=== PATIENT | female | born 1950 | race Caucasian/White ===

== ENCOUNTER 2018-10-02 10:31 | Emergency (ER) | payer MEDICARE ==
[~2018-10-02] VITALS: Ht 154.9 cm; Wt 85.8 kg
[2018-10-02 11:04] VITALS: Ht 154.9 cm; Wt 85.8 kg
[2018-10-02 11:48] LABS: microscopic required? NO
[2018-10-02 11:56] LABS: CARBON DIOXIDE 27.1 mmol/L (21-32); CHLORIDE SERUM 103 mmol/L (98-107); CREATININE SERUM 0.7 mg/dL (0.6-1.0); GFR1 > 60 mL/min; GLUCOSE SERUM 282 mg/dL (74-106); POTASSIUM SERUM 3.3 mmol/L (3.5-5.1); SODIUM SERUM 142 mmol/L (136-145)
[2018-10-02 11:59] LABS: BASOPHIL % 0.5 % (0-2); PLATELET COUNT 275 x10^3mcL (130-400); RED CELL DISTRIBUTION WIDTH 14.1 % (11.5-14.5)
[2018-10-02 12:00] LABS: ALBUMIN 3.8 g/dL (3.4-5.0); ALKALINE PHOSPHATASE 110 U/L (46-116); ALT/SGPT 79 U/L (14-59); AMYLASE 41 U/L (25-115); AST/SGOT 48 U/L (15-37); LIPASE 169 IU/L (73-393); TOTAL PROTEIN, SERUM 7.5 g/dL (6.4-8.2)
[2018-10-02 12:01] LABS: UA SPECIFIC GRAVITY 1.015 (1.005-1.035); urine erythrocyte NEGATIVE (NEGATIVE)
[2018-10-02 13:37] VITALS: BP 146/88
== END 2018-10-02 13:37 | disposition home or self-care (01) ==
LOC: ED 10:31
PROVIDERS: Specialist
DX: R10.31 Right lower quadrant pain (principal); I10 Essential (primary) hypertension; Z90.49 Acquired absence of other specified parts of digestive tract; Z98.890 Other specified postprocedural states; Z90.710 Acquired absence of both cervix and uterus
CPT/HCPCS: 82962; J1885; J7030